=== PATIENT | female | born 1975 | race Two or more races ===

== ENCOUNTER 2020-07-08 14:16 | Emergency (ER) | payer OTHER ==
[~2020-07-08] VITALS: Ht 170.2 cm; Wt 86.2 kg
--- NOTE | 2020-07-08 15:16 | NUR ---
Patient is back from radiology dept, for results and disposition
--- NOTE | 2020-07-08 15:35 | NUR ---
Discharge instructions were given to patient. Patient verbalized understanding and compliance to verbal and written discharge instructions. Discharged patient in stable condition. Patient left ER with brisk steady gait. Copies of all tests' results were given to patient.
== END 2020-07-08 15:37 | disposition home or self-care (01) ==
LOC: ER 14:26
DX: S06.9X9A Unspecified intracranial injury with loss of consciousness of unspecified duration, initial encounter (principal); S13.9XXA Sprain of joints and ligaments of unspecified parts of neck, initial encounter; R40.2412 Glasgow coma scale score 13-15, at arrival to emergency department; V49.3XXA Car occupant (driver) (passenger) injured in unspecified nontraffic accident, initial encounter; Y92.89 Other specified places as the place of occurrence of the external cause; J45.909 Unspecified asthma, uncomplicated; Z59.0 Homelessness
CPT/HCPCS: 70450; A4663